=== PATIENT | male | born 2000 | race Two or more races ===

== ENCOUNTER 2021-04-15 03:24 | Emergency (ER) | payer OTHER ==
[~2021-04-15] VITALS: Ht 182.9 cm; Wt 131.5 kg
[2021-04-15 03:24] VITALS: BP 154/82
[2021-04-15 05:51] LABS: Alcohol, Urine < 3.0 mg/dL (0-10); Amphetamine Screen, Urine NEGATIVE (NEGATIVE); Barbiturate Scree,Urine NEGATIVE (NEGATIVE); Benzodiazephine Screen, Urine NEGATIVE (NEGATIVE); Cannabinoid Screen, Urine POSITIVE (NEGATIVE); Cocaine Screen, Urine NEGATIVE (NEGATIVE); Phencyclidine Screen, Urine NEGATIVE (NEGATIVE)
[2021-04-15 05:59] LABS: Opiate Scree,Urine NEGATIVE (NEGATIVE)
== END 2021-04-15 06:04 | disposition home or self-care (01) ==
LOC: ER 03:29
DX: S62.635A Displaced fracture of distal phalanx of left ring finger, initial encounter for closed fracture (principal); S61.215A Laceration without foreign body of left ring finger without damage to nail, initial encounter; W23.0XXA Caught, crushed, jammed, or pinched between moving objects, initial encounter; Y93.89 Activity, other specified; Y92.89 Other specified places as the place of occurrence of the external cause; Y99.8 Other external cause status
CPT/HCPCS: 12002; 73130; 80307; 99284; J2001

== ENCOUNTER 2021-05-10 09:56 | Emergency (ER) | payer OTHER ==
[~2021-05-10] VITALS: Ht 182.9 cm; Wt 131.5 kg
[2021-05-10 09:57] VITALS: BP 145/88
== END 2021-05-10 10:34 | disposition home or self-care (01) ==
LOC: ER 09:56
DX: S61.215D Laceration without foreign body of left ring finger without damage to nail, subsequent encounter (principal); X58.XXXD Exposure to other specified factors, subsequent encounter